=== PATIENT | female | born 1975 | race Caucasian/White ===

== ENCOUNTER 2016-11-24 15:00 | Emergency (ER) ==
[2016-11-24] MEDS ORDERED: IMITREX SUBQ ONE (15:56)
[2016-11-24] MEDS ORDERED: PHENERGAN IM ONE (15:56)
[2016-11-24] MEDS ORDERED: DECADRON IM ONE (15:57)
--- NOTE | 2016-11-24 16:03 | PROVIDER DOCUMENTATION ---
[facility] General <Joann Ahuja - Last Filed: 11/24/16 16:02> - General Source: patient - History of Present Illness-[facility] Location: reports: ear (R), ear (L), throat Quality of Pain: reports: aching Severity: reports: moderate Onset/Duration: reports: 3 days ago Timing: reports: still present Prearrival Treatment: Initiated no prearrival treatment Locality of Occurance: Home Similar Symptoms Previously?: No Recently seen or treated by another doctor?: No <Kurt Tavarez - Last Filed: 11/24/16 16:14> - General Chief Complaint: Cold Symptoms Stated Complaint: COLD SX Time Seen by Provider: 11/24/16 15:52 Allergies/Adverse Reactions: Patient Allergies Allergy/AdvReac Type Severity Reaction Status Date / Time No Known Allergies Allergy Verified 11/03/15 16:06 Home Medications: Lisinopril 20 mg 01/11/15 Fluoxetine [Prozac] 20 mg PO DAILY 03/09/15 - History of Present Illness-[facility] General Nature of Presenting Problem: Hx of Chronic Bronchitis presents to er with cc bilateral ear pain and throat pain x 3 days with headache chronic cough. reports takes imatrex for headaches which normally helps. Also reports nausea and photophobia. (Kurt Tavarez) Review of Systems - Adult - REVIEW OF SYSTEMS - ADULT Constitutional: denies: chills, fever, fatique Eyes: reports: no symptoms reported Ears, Nose, Mouth & Throat: reports: ear pain, throat pain. denies: sinus problem Cardiovascular: denies: chest pain, irregular heart rate, orthopnea, syncope Respiratory: reports: cough. denies: pleurisy, shortness of breath, wheezing Gastrointestinal: reports: nausea. denies: difficulty swallowing, frequent heartburn, vomiting Genitourinary: reports: no symptoms reported Musculoskeletal: reports: no symptoms reported Integumentary: reports: no symptoms reported Neurological: reports: headache/migraines. denies: dizziness/vertigo, numbness , paresthesia, tremors Psychiatric: reports: no symptoms reported Endocrine: reports: no symptoms reported Hematologic/Lymphatic: reports: no symptoms reported Allergic/Immunologic: reports: no symptoms reported All Other Systems: Reviewed and Negative <Kurt Tavarez - Last Filed: 11/24/16 16:14> Past History - Adult - PAST MEDICAL HISTORY-ADULT Cardiovascular: reports: HTN Respiratory: reports: asthma - PRIOR SURGERIES/PROCEDURES Surgical/Procedure History: reports: reviewed, not pertinent - IMMUNIZATION STATUS Childhood Immunizations: See Nurse Assessment Flu Vaccine: See Nurse Assessment - FAMILY HISTORY Family History: reviewed, not pertinent <JohancharleneJoannrobyn Brown - Last Filed: 11/24/16 16:02> - PAST MEDICAL HISTORY-ADULT Review of Records: reports: Nursing Assessment Review Major Childhood Illnesses: reports: denies history Cardiovascular: reports: HTN Respiratory: reports: asthma Neurological: reports: headaches/migraines Psychiatric: reports: depression - PRIOR SURGERIES/PROCEDURES Surgical/Procedure History: reports: BTL - IMMUNIZATION STATUS Childhood Immunizations: See Nurse Assessment Flu Vaccine: See Nurse Assessment - SOCIAL HISTORY Smoking: cigarettes, greater than 1 pack/day Provider spent 3-5 mins advising pt. on dangers of tobacco.: Discussed manners to quit use, and f/u contacts for add'l counseling. Substance Use: none/never <Kurt Tavarez - Last Filed: 11/24/16 16:14> Physical Exam- EENT - Physical Exam EENT Initial Vital Signs Reviewed: Yes General Appearance: appears well, alert, no apparent distress Eye Exam: bilateral eye: normal inspection, PERRL, EOMI Ear Exam: bilateral ear: other (TMs retracted) Nasal Exam: normal inspection Throat Exam: normal mouth inspection, pharynx normal Respiratory: chest non-tender, lungs clear, normal breath sounds, no pleuratic chest pain, no respiratory distress, no accessory muscle use Cardiovascular: normal peripheral pulses, regular rate, rhythm, no edema, no gallop, no JVD, no murmur Abdominal Exam: normal bowel sounds, non tender, soft, no organomegaly, no pulsatile mass Lymphatic: no adenopathy Back Exam: normal inspection, no CVA tenderness, no vertebral tenderness Extremity: normal range of motion, non-tender, normal gait, normal inspection, no pedal edema, no calf tenderness, normal capillary refill, pelvis stable Integumentary: normal color, normal turgor, warm/dry 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, no motor/sensory deficits Psych/Mental Status: AL, normal mood/affect, normal thought content, normal thought process, oriented x 3 <Kurt Tavarez - Last Filed: 11/24/16 16:14> Progress <Joann Ahuja - Last Filed: 11/24/16 16:02> <Kurt Tavarez - Last Filed: 11/24/16 16:14> - PLAN OF CARE/RESULTS Progress/Plan/Lab Results: Orders Category Date Time Status Dexamethasone [Decadron] Med 11/24/16 15:57 Discontinued 4 mg IM NOW ONE Promethazine [Phenergan] Med 11/24/16 15:56 Discontinued 25 mg IM NOW ONE Sumatriptan [Imitrex] Med 11/24/16 15:56 Discontinued 6 mg SUBQ NOW ONE Vital Signs - 24 hr 11/24/16 15:09 Temperature 98.7 F Pulse Rate 75 Respiratory 18 Rate Blood Pressure 128/76 O2 Sat by Pulse 100 Oximetry (Kurt Tavarez) Departure - Departure Time of Disposition Order: 16:02 Certified Medical Emergency: Emergent <Joann Ahuja - Last Filed: 11/24/16 16:02> <Kurt Tavarez - Last Filed: 11/24/16 16:14> - Departure DIAGNOSIS: Sinusitis Qualifiers: Sinusitis location: frontal Migraine Qualifiers: Migraine type: without aura Status migrainosus presence: without status migrainosus Intractability: not intractable Qualified Code(s): G43.009 - Migraine without aura, not intractable, without status migrainosus Disposition: HOME 01 Condition: Stable Additional Instructions: Follow up with your primary care physician ED Follow Up Instructions: You have been treated by a care provider in the Emergency Department. These instructions are being provided to you so you can have an understanding of how to care for yourself upon discharge. Upon discharge from the Emergency Department, you are responsible for making arrangements for follow-up care by a physician of your choice. Take all prescribed medications as directed. Return to the Emergency Department immediately for any new or worsening symptoms. You may call the Physician Referral phone number at [phone] to obtain a list of Physicians who are taking new patients. Prescriptions: Promethazine [Phenergan] 25 mg PO Q6H PRN PRN #20 tablet PRN Reason: Nausea Azithromycin [Zithromax Z-Ronal] 250 mg PO DIRECTED #1 pkg Referrals: Francois Silverio MD [STAFF PHYSICIAN] - None,PCP [Primary Care Provider] - Forms: Return to School/Parent Work Instructions: Migraine Headache, [id number], Sinusitis, [id number], Promethazine tablets, Azithromycin oral suspension (extended release) Attestation - Scribe Verification/Attestation Scribe:: Kurt Tavarez Acting as Scribe for:: Joann Ahuja Scribe documention review:: This chart was documented by a scribe and accurately reflects the service the provider performed and the decisions made by the provider. <Kurt Tavarez - Last Filed: 11/24/16 16:14> Physician Attestation
[2016-11-24] MEDS ORDERED: CATAPRES PO ONE (16:34)
[2016-11-24 17:16] VITALS: BP 156/85
== END 2016-11-24 17:23 | disposition home or self-care (01) ==
LOC: P.ED 15:00
DX: J32.1 Chronic frontal sinusitis (principal); G43.009 Migraine without aura, not intractable, without status migrainosus; Z79.899 Other long term (current) drug therapy; H92.03 Otalgia, bilateral; R07.0 Pain in throat; R05 Cough; R11.0 Nausea; H53.149 Visual discomfort, unspecified; I10 Essential (primary) hypertension; J45.909 Unspecified asthma, uncomplicated; F32.9 Major depressive disorder, single episode, unspecified; F17.210 Nicotine dependence, cigarettes, uncomplicated; Z71.6 Tobacco abuse counseling
CPT/HCPCS: 96372; J1100; J2550; J3030